=== PATIENT | male | born 1940 | race Caucasian/White ===

== ENCOUNTER 2017-01-16 15:29 | Emergency (ER) | payer MEDICARE ==
--- NOTE | 2017-01-16 17:42 | ULT ---
LEFT LOWER EXTREMITY VENOUS ULTRASOUND 01/16/17 Ultrasonography of the left lower extremity was performed. All deep veins were freely compressible fr om groin to ankle. There was normal doppler response to augmentation maneuvers. No echogenic clot was seen. A Bustillos's cyst was seen in the popliteal region that measured approximately 3.5 x 1.1 cm. IMPRESSION: 1. No evidence of DVT. 2. Bustillos's cyst. POS: HOME
--- NOTE | 2017-01-16 21:37 | RAD ---
LEFT ANKLE THREE VIEWS 01/16/17 No prior films were available for comparison. There is considerable soft tissue swelling and edema in the lower leg/ankle. no acute fracture was seen. Deformity and spurring from the medial malleolus is suggestive of old trauma here. There is minor irregularity at the tip of the lateral malleolus. Calc aneal spurs are present. There is ossification in the Achilles tendon near its insertion. The ankle j oint itself was unremarkable. IMPRESSION: Chronic changes and soft tissue swelling but no acute bony finding. POS: HOME
== END 2017-01-16 17:19 | disposition home or self-care (01) ==
LOC: BURERS 15:29
DX: M10.9 Gout, unspecified (principal); I10 Essential (primary) hypertension; Z87.891 Personal history of nicotine dependence